=== PATIENT | male | born 1945 | race Caucasian/White ===

== ENCOUNTER 2019-11-07 14:24 | Inpatient (IN) ==
--- NOTE | 2019-11-07 14:41 | DR.AMS ---
HPI Time Seen Time Seen by Provider: 11/07/19 14:37 HPI Comment HPI Comment: 74 y/o discharged from [facility] yesterday after tx for UTI was also diagnosed with covid19 11/04; he was to come home on oxygen but refused and become very sob and confused overnight prompting today's visit; confused w/most of his answers so info obtained from daughter who says he started urinating on himself and went to ER on Friday; slight cough for the past few days with confusion, diarrhea and low oxygen; no fever, chills, abd pain, vomiting, cp, rash or swelling in feet legs. [facility] lab shows covid19+ 11/04 x 2 different tests PMH PMH Past Surgical History: Yes ROS Review of Systems Unable to Obtain Due To: Altered mental status PE Vitals Vital Signs: Temp Pulse Resp BP Pulse Ox 11/07/19 16:45 115 H 41 H 84 L 11/07/19 16:41 110 H 156/91 88 L 11/07/19 16:30 114 H 87 L 11/07/19 16:20 112 H 133/64 91 L 11/07/19 16:15 82 L 11/07/19 16:00 111 H 131/78 90 L 11/07/19 15:45 107 H 92 L 11/07/19 15:40 110 H 124/77 11/07/19 15:30 106 H 91 L 11/07/19 15:20 109 H 119/65 94 L 11/07/19 15:00 109 H 44 H 121/82 11/07/19 14:47 98.9 F 106 H 41 H 129/78 71 L 11/07/19 14:45 102 H 40 H 87 L 11/07/19 14:40 104 H 40 H 129/70 84 L 11/07/19 14:31 103 H 42 H 86 L 08/12/19 10:47 141/86 General Limitations: Altered Mental Status General Appearance: Other (pale, disoriented) Head Head Exam: Normal Inspection, Atraumatic and Normocephalic Eyes Eye exam: Normal Appearance, PERRL and EOMI Neck Neck Exam: Normal Inspection, Full ROM and Trachea Midline Chest Chest Inspection: Normal Inspection and Symmetric Chest Wall Rise Respiratory Respiratory Exam: Normal Lung Sounds Bilat Respiratory Exam: Bilateral: Clear to Auscultation Cardiovascular Cardiovascular Exam: Regular Rate and Tachycardia Abdominal Exam Abdominal Exam: Normal Inspection, Normal Bowel Sounds and Soft Extremities Extremities Exam: Normal Inspection and Full ROM Neurological Neurological Exam: Alert Skin Skin Exam: Warm and Dry COURSE Consultation Call Returned: 17:00 Consultation Comments: s/w Dr Mclean who accepts admission [facility] Labs Reviewed Laboratory Results Reviewed?: Yes Result Diagrams: 11/07/19 15:10 11/07/19 15:10 Laboratory: WBC 13.4 X10^3/uL (3.6-10.0) H 11/07/19 15:10 RBC 4.74 X10^6/uL (4.7-6.0) 11/07/19 15:10 Hgb 13.5 g/dL (13.5-18.0) 11/07/19 15:10 Hct 39.9 % (42.0-54.0) L 11/07/19 15:10 MCV 84.4 fL (80.0-100.0) 11/07/19 15:10 MCH 28.5 pg (27.0-34.0) 11/07/19 15:10 MCHC 33.8 g/dL (33.0-35.0) 11/07/19 15:10 RDW 16.8 % (11.6-16.5) H 11/07/19 15:10 Plt Count 122 X10^3/uL (150.0-450.0) L 11/07/19 15:10 Plt Count Comment Decreased (ADEQUATE) 11/07/19 15:10 MPV 7.9 fL (7.4-11.0) 11/07/19 15:10 Neut % (Auto) 90.0 % (42.0-75.0) H 11/07/19 15:10 Lymph % (Auto) 5.8 % (21.0-51.0) L 11/07/19 15:10 [place] % (Auto) 4.0 % (0.0-13.0) 11/07/19 15:10 Eos % (Auto) 0.0 % (0.9-2.9) L 11/07/19 15:10 Baso % (Auto) 0.2 % (0.2-1.0) 11/07/19 15:10 Neut # (Auto) 12.0 x10^3/uL (2.2-4.8) H 11/07/19 15:10 Lymph # (Auto) 0.8 X10^3/uL (1.3-2.9) L 11/07/19 15:10 [place] # (Auto) 0.5 x10^3/uL (0.3-0.8) 11/07/19 15:10 Eos # (Auto) 0.0 x10^3/uL (0.0-0.2) 11/07/19 15:10 Baso # (Auto) 0.0 X10^3/uL (0.0-0.1) 11/07/19 15:10 Absolute Nucleated RBC 0.1 /100WBC 11/07/19 15:10 Total Counted 100 11/07/19 15:10 Neutrophils % (Manual) 64 % (39-76) 11/07/19 15:10 Band Neutrophils % 12 % (0-10) H 11/07/19 15:10 Lymphocytes % (Manual) 12 % (13-43) L 11/07/19 15:10 Monocytes % (Manual) 6 % (4-9) 11/07/19 15:10 Metamyelocytes % 3 11/07/19 15:10 Myelocytes % 3 11/07/19 15:10 Plt Morphology Comment Normal (NORMAL) 11/07/19 15:10 RBC Morphology Normal (NORMAL) 11/07/19 15:10 Sample Site Right brachial 11/07/19 14:42 ABG pH 7.520 (7.35-7.45) H 11/07/19 14:42 ABG pCO2 30.0 mmHg (35.0-45.0) L 11/07/19 14:42 ABG pO2 44.0 mmHg (80.0-100.0) L* 11/07/19 14:42 ABG HCO3 24.5 mmol/L (22-26) 11/07/19 14:42 ABG O2 Saturation 85.0 % (90-100) L 11/07/19 14:42 ABG Base Excess 2.3 mmol/L (-2.0-2.0) H 11/07/19 14:42 [place] Test Na 11/07/19 14:42 A-a Gradient 68.0 mmHg 11/07/19 14:42 FiO2 21.0 11/07/19 14:42 Blood Gas Comments Lili well aw 11/07/19 14:42 Sodium 135 mmol/L (136-145) L 11/07/19 15:10 Corrected Sodium 137 mmol/L (136-145) 11/07/19 15:10 Potassium 4.3 mmol/L (3.5-5.1) 11/07/19 15:10 Chloride 98 mmol/L (98-107) 11/07/19 15:10 Carbon Dioxide 28.1 mmol/L (21-32) 11/07/19 15:10 BUN 19 mg/dL (7-18) H 11/07/19 15:10 Creatinine 1.40 mg/dL (0.70-1.30) H 11/07/19 15:10 Est GFR (MDRD) Af Amer > 60 (>60) 11/07/19 15:10 Est GFR (MDRD) Non-Af 52 (>60) L 11/07/19 15:10 Glucose 175 mg/dL (65-99) H 11/07/19 15:10 Lactic Acid 3.2 mmol/L (0.4-2.0) H 11/07/19 15:10 Calcium 8.3 mg/dL (8.5-10.1) L 11/07/19 15:10 Corrected Calcium 9.3 mg/dL (8.5-10.1) 11/07/19 15:10 Total Bilirubin 0.60 mg/dL (0.2-1.0) 11/07/19 15:10 AST 48 Units/L (15-37) H 11/07/19 15:10 ALT 37 Units/L (12-78) 11/07/19 15:10 Alkaline Phosphatase 92 Units/L (46-116) 11/07/19 15:10 C-Reactive Protein 7.40 mg/L (0-3.0) H 11/07/19 15:10 Total Protein 6.5 g/dL (6.4-8.2) 11/07/19 15:10 Albumin 2.8 g/dL (3.4-5.0) L 11/07/19 15:10 Globulin 3.7 g/dL (2.5-4.5) 11/07/19 15:10 Albumin/Globulin Ratio 0.8 Ratio (1.1-2.1) L 11/07/19 15:10 XRAY XRAY Interpreted by: Radiologist X-ray Results: cxr: Cardiomegaly without congestive heart failure Hypo inflation Interstitial lung changes right lung base Opioid Opioid Risk Tool Total: 0 Total Score Risk Category: Low Risk Copyright: [facility] predicting aberrant behaviors Diagnosis Discharge Problem: Hypoxia, COVID-19 virus detected RLL pneumonia Qualifiers: Pneumonia type: due to unspecified organism Qualified Code(s): J18.9 - Pn eumonia, unspecified organism Sepsis Qualifiers: Sepsis type: sepsis due to unspecified organism Sepsis acute organ dysfunction status: with acute organ dysfunction Severe sepsis acute organ dysfunction type: encephalopathy Severe sepsis shock status: without septic shock Qualified Code(s): A41.9 - Sepsis, unspecified organism Instructions Instructions: Community-Acquired Pneumonia, Adult, [id number] Forms: Excuse From Work Precautions for COVID19 Patient Portal Social Distancing
[2019-11-07 14:52] VITALS: BMI 33.1
[2019-11-07 14:52] LABS: ABG BASE EXCESS 2.3 mmol/L (-2.0-2.0); ABG HCO3 24.5 mmol/L (22-26)
--- NOTE | 2019-11-07 15:07 | RAD ---
HISTORYConfusion, COVID-19 positiveSTUDYChest AP portableCOMPARISONNoneFINDINGSThe heart is enlarged. No congestive heart failure is noted. The lungs are hypoinflated but free of acute alveolar and ground-glass infiltrates. Mild interstitial infiltrates are present in the right lung base. No pleural effusions are identified. Bony thorax is unremarkable.IMPRESSIONCardiomegaly without congestive heart failureHypo inflationInterstitial lung changes right lung baseElectronically signed by: WILFREDO MARTIN (Nov 07, 2019 15:06:05)
[2019-11-07 15:38] LABS: BASOPHILS % (AUTO) 0.2 % (0.2-1.0); HEMATOCRIT 39.9 % (42.0-54.0); HEMOGLOBIN 13.5 g/dL (13.5-18.0); LYMPHOCYTES # (AUTO) 0.8 X10^3/uL (1.3-2.9); LYMPHOCYTES % (AUTO) 5.8 % (21.0-51.0); MEAN CORPUSCULAR HEMOGLOBIN 28.5 pg (27.0-34.0); MEAN CORPUSCULAR HGB CONC 33.8 g/dL (33.0-35.0); MEAN CORPUSCULAR VOLUME 84.4 fL (80.0-100.0); MEAN PLATELET VOLUME 7.9 fL (7.4-11.0); MONOCYTES # (AUTO) 0.5 x10^3/uL (0.3-0.8); PLATELET COUNT 122 X10^3/uL (150.0-450.0); RED BLOOD COUNT 4.74 X10^6/uL (4.7-6.0); RED CELL DISTRIBUTION WIDTH 16.8 % (11.6-16.5); WHITE BLOOD COUNT 13.4 X10^3/uL (3.6-10.0)
[2019-11-07 15:41] LABS: ALANINE AMINOTRANSFERASE 37 Units/L (12-78); ALBUMIN 2.8 g/dL (3.4-5.0); ALKALINE PHOSPHATASE 92 Units/L (46-116); ASPARTATE AMINO TRANSFERASE 48 Units/L (15-37); BLOOD UREA NITROGEN 19 mg/dL (7-18); CALCIUM 8.3 mg/dL (8.5-10.1); CARBON DIOXIDE 28.1 mmol/L (21-32); CHLORIDE 98 mmol/L (98-107); COR CA(FOR HYPOALB) 9.3 mg/dL (8.5-10.1); COR NA(FOR HYPERGLY) 137 mmol/L (136-145); SODIUM 135 mmol/L (136-145); TOTAL PROTEIN 6.5 g/dL (6.4-8.2); eGFR NON BLACK RACES 52 (>60)
[2019-11-07 15:43] LABS: LACTIC ACID 3.2 mmol/L (0.4-2.0)
[2019-11-07 16:34] LABS: BAND NEUTROPHILS % 12 % (0-10); METAMYELOCYTES % 3; MYELOCYTES % 3; PLATELET MORPHOLOGY COMMENT NORMAL (NORMAL)
[2019-11-07] MEDS ORDERED: ROCEPHIN VIAL 1 GRAM 1 G in NS 100 ML IV + SPIKE MINIBAG* 100 ML IV ONE (16:59)
[2019-11-07] MEDS ORDERED: ZITHROMAX INJ 500 MG VIAL 500 MG in NS 250 ML IV 250 ML IV SCH (16:59)
[2019-11-07] MEDS ORDERED: ZOFRAN INJ 4 MG VIAL ONE (17:26)
[2019-11-07] MEDS ORDERED: NS 100 ML IV 100 ML IV ONE (17:31)
[2019-11-07] MEDS ORDERED: ROCEPHIN VIAL 1 GRAM ONE (17:31)
[2019-11-07] MEDS ORDERED: NS 1000 ML 1,000 ML ONE (17:31)
[2019-11-07] MEDS: NS 1000 ML 1,000 ML IV SCH (17:53)
[2019-11-07] MEDS: ROCEPHIN VIAL 1 GRAM 1 G in NS 100 ML IV + SPIKE MINIBAG* 100 ML IV SCH (17:54)
[2019-11-07] MEDS ORDERED: NARCAN INJ ONE (18:09)
[2019-11-07] MEDS ORDERED: TYLENOL SUPP 325 MG ONE (18:10)
[2019-11-07] MEDS ORDERED: TYLENOL SUPP 650 MG PR ONE (18:16)
[2019-11-07] MEDS: ZITHROMAX INJ 500 MG VIAL 500 MG in NS 250 ML IV 250 ML IV SCH (22:25)
[2019-11-07] MEDS: SNACK - Diabetic Appropriate PO SCH (22:25)
[2019-11-07] MEDS: ASCORBIC ACID INJ MULTI-DOSE VIAL 1,500 MG in NS 100 ML IV 100 ML IV SCH (22:26)
[2019-11-07] MEDS: LOVENOX INJ 30 MG SYR SC SCH (22:26)
[2019-11-07] MEDS: ZINC SULFATE PO SCH (22:27)
[2019-11-07] MEDS: MAALOX or MYLANTA PO PRN (23:10)
[2019-11-08 01:20] LABS: BILIRUBIN,URINE NEGATIVE (NEGATIVE); BLOOD/HEMOGLOBIN,URINE 1+ (NEGATIVE); GLUCOSE, URINE NEGATIVE (NEGATIVE); KETONES,URINE 1+ (NEGATIVE); LEUKOCYTE ESTERASE ,URINE NEGATIVE (NEGATIVE); NITRITES,URINE NEGATIVE (NEGATIVE); PROTEIN,URINE 2+ (NEGATIVE); UROBILINOGEN,URINE NORMAL (NORMAL)
[2019-11-08 01:37] LABS: APPEARANCE,URINE CLEAR (CLEAR); BACTERIA,URINE NEGATIVE /HPF (NEGATIVE); COLOR,URINE YELLOW (YELLOW); RBC,URINE 0-2 /HPF (0-3); SQUAMOUS EPITHELIAL CELL,UR RARE /HPF (NEGATIVE)
[2019-11-08] MEDS: ASCORBIC ACID INJ MULTI-DOSE VIAL 1,500 MG in NS 100 ML IV 100 ML IV SCH (03:26)
[2019-11-08] MEDS: HumuLIN R SUBCUT PRN ×2 (05:55→22:17)
[2019-11-08] MEDS: NS 1000 ML 1,000 ML IV SCH ×3 (05:55→22:19)
[2019-11-08 06:22] LABS: ALANINE AMINOTRANSFERASE 30 Units/L (12-78); ALBUMIN 2.5 g/dL (3.4-5.0); ALKALINE PHOSPHATASE 85 Units/L (46-116); ASPARTATE AMINO TRANSFERASE 47 Units/L (15-37); BLOOD UREA NITROGEN 19 mg/dL (7-18); CALCIUM 7.8 mg/dL (8.5-10.1); CARBON DIOXIDE 28.8 mmol/L (21-32); CHLORIDE 97 mmol/L (98-107); COR NA(FOR HYPERGLY) 139 mmol/L (136-145); CREATININE 1.35 mg/dL (0.70-1.30); SODIUM 135 mmol/L (136-145); eGFR NON BLACK RACES 55 (>60)
[2019-11-08 06:37] LABS: BASOPHILS % (AUTO) 0.3 % (0.2-1.0); EOSINOPHILS % (AUTO) 0.1 % (0.9-2.9); HEMATOCRIT 36.4 % (42.0-54.0); HEMOGLOBIN 12.4 g/dL (13.5-18.0); MEAN CORPUSCULAR HEMOGLOBIN 28.9 pg (27.0-34.0); MEAN CORPUSCULAR VOLUME 85.2 fL (80.0-100.0); MEAN PLATELET VOLUME 8.1 fL (7.4-11.0); MONOCYTES # (AUTO) 0.8 x10^3/uL (0.3-0.8); MONOCYTES % (AUTO) 6.5 % (0.0-13.0); NEUTROPHILS # (AUTO) 10.4 x10^3/uL (2.2-4.8); NEUTROPHILS % (AUTO) 85.1 % (42.0-75.0); PLATELET COUNT 112 X10^3/uL (150.0-450.0); RED BLOOD COUNT 4.28 X10^6/uL (4.7-6.0); RED CELL DISTRIBUTION WIDTH 16.9 % (11.6-16.5); WHITE BLOOD COUNT 12.2 X10^3/uL (3.6-10.0)
[2019-11-08 07:56] LABS: BAND NEUTROPHILS % 15 % (0-10)
[2019-11-08 07:57] LABS: PLATELET MORPHOLOGY COMMENT NORMAL (NORMAL)
[2019-11-08] MEDS ORDERED: DECADRON TAB PO SCH (09:00)
[2019-11-08] MEDS ORDERED: VITAMIN D (1.25MG) PO SCH (09:00)
[2019-11-08] MEDS: ROCEPHIN VIAL 1 GRAM 1 G in NS 100 ML IV + SPIKE MINIBAG* 100 ML IV SCH (10:14)
[2019-11-08] MEDS: ZINC SULFATE PO SCH ×2 (10:37→22:00)
[2019-11-08] MEDS: SYNTHROID 75 mcg TAB PO SCH (10:38)
[2019-11-08] MEDS: COREG TAB 3.125 MG PO SCH ×2 (10:40→22:00)
[2019-11-08] MEDS: LOVENOX INJ 30 MG SYR SC SCH ×2 (10:40→22:00)
[2019-11-08] MEDS: PLAQUENIL PO SCH ×2 (10:41→22:00)
[2019-11-08] MEDS: ZITHROMAX INJ 500 MG VIAL 500 MG in NS 250 ML IV 250 ML IV SCH (11:34)
[2019-11-08] MEDS: MAALOX or MYLANTA PO PRN (12:00)
[2019-11-08] MEDS: PROTONIX INJ 40 MG VIAL IVP SCH ×2 (12:00→22:00)
[2019-11-08] MEDS: ASCORBIC ACID INJ MULTI-DOSE VIAL 1,500 MG in NS 50 ML IV 50 ML IV SCH ×4 (13:45→22:00)
[2019-11-08] MEDS: LEVSIN/MAALOX/LIDOC VISC PO SCH ×3 (13:45→22:00)
[2019-11-08] MEDS: SNACK - Diabetic Appropriate PO SCH (20:00)
[2019-11-09] MEDS ORDERED: LASIX IVP ONE ×2 (00:59→01:11)
[2019-11-09] MEDS ORDERED: REMDESIVIR (INVESTIGATIONAL DRUG GS-5734) 200 MG in NS 250 ML IV 250 ML IV SCH (01:00)
[2019-11-09] MEDS ORDERED: REMDESIVIR (INVESTIGATIONAL DRUG GS-5734) IV ONE (01:12)
[2019-11-09] MEDS ORDERED: NS 250 ML IV 250 ML IV ONE (01:13)
[2019-11-09] MEDS ORDERED: BUTT CREAM (COMPOUND) ONE (01:44)
[2019-11-09] MEDS: ASCORBIC ACID INJ MULTI-DOSE VIAL 1,500 MG in NS 50 ML IV 50 ML IV SCH ×4 (04:00→21:24)
[2019-11-09] MEDS: SOLU-Medrol 125 MG VIAL IVP SCH ×3 (06:32→21:27)
[2019-11-09] MEDS: HumuLIN R SUBCUT PRN ×4 (06:37→21:28)
[2019-11-09 06:53] LABS: BASOPHILS % (AUTO) 0.2 % (0.2-1.0); HEMOGLOBIN 12.8 g/dL (13.5-18.0); LYMPHOCYTES # (AUTO) 0.7 X10^3/uL (1.3-2.9); LYMPHOCYTES % (AUTO) 6.2 % (21.0-51.0); MEAN CORPUSCULAR HEMOGLOBIN 29.1 pg (27.0-34.0); MEAN CORPUSCULAR HGB CONC 34.7 g/dL (33.0-35.0); MONOCYTES # (AUTO) 0.5 x10^3/uL (0.3-0.8); MONOCYTES % (AUTO) 4.4 % (0.0-13.0); NEUTROPHILS # (AUTO) 9.6 x10^3/uL (2.2-4.8); NEUTROPHILS % (AUTO) 89.2 % (42.0-75.0); PLATELET COUNT 107 X10^3/uL (150.0-450.0); RED BLOOD COUNT 4.41 X10^6/uL (4.7-6.0); WHITE BLOOD COUNT 10.8 X10^3/uL (3.6-10.0)
[2019-11-09 07:01] LABS: ALANINE AMINOTRANSFERASE 36 Units/L (12-78); ALBUMIN 2.5 g/dL (3.4-5.0); ALKALINE PHOSPHATASE 85 Units/L (46-116); ASPARTATE AMINO TRANSFERASE 58 Units/L (15-37); BLOOD UREA NITROGEN 15 mg/dL (7-18); CARBON DIOXIDE 29.7 mmol/L (21-32); CHLORIDE 97 mmol/L (98-107); COR CA(FOR HYPOALB) 9.2 mg/dL (8.5-10.1); COR NA(FOR HYPERGLY) 137 mmol/L (136-145); SODIUM 134 mmol/L (136-145); TOTAL PROTEIN 6.4 g/dL (6.4-8.2); eGFR NON BLACK RACES > 60 (>60)
--- NOTE | 2019-11-09 08:15 | DR.H&P ---
H&P - History & Physical for Day of: H&P Date: 11/07/19 - Chief Complaint Chief Complaint: COVID 19, DEHYDRATION, FEVER, CCC - History of Present Illness History of Present Illness: PT IS 74 WM ER ADMISSION WITH PMH OF COLON CA, UNDER THE CARE OF DR SANTIAGO, WHO PRESENTED WITH CO FEVER, CCC, UTI AND COVID 19. PT FAMILY STATES PT WAS RELEASED ONE DAY PRIOR TO ADMISSION FROM [facility] IN [place] WITH UTI, DEHYDRATION. PT REPORTS HE HAD TAKEN CHEMO LAST WEEK. PT HYPOXIC ON ADMISSION. [facility] OF [facility]UTE ILLNESS. - Past Medical History Past Medical History: Dyslipidemia, Hypertension, Hypothyroidism - Past Surgical History Surgical History: Joint Replacement - Family History Family Medical History: Diabetes Mellitus, Cancer, Hypertension - Social History Does patient currently use any type of tobacco product: No Have you used tobacco products in the last 12 months: No Type of Tobacco Use: None Does any household member use tobacco: No Alcohol Use: None Drug Use: None - Medications Home Medications: No Known Drug Allergies Allergy (Verified 11/07/19 15:10) CONTINUE taking the following medications atorvastatin 40 mg PO HS 11/07/19 [History] cefdinir 300 mg PO BID 11/07/19 [History] glipizide 5 mg PO DAILY 11/07/19 [History] hydrochlorothiazide 25 mg PO DAILY 11/07/19 [History] hydroxychloroquine 200 mg PO BID 11/07/19 [History] levofloxacin [Levaquin] 500 mg PO DAILY 11/07/19 [History] levothyroxine 75 mcg PO DAILY 11/07/19 [History] prednisone 5 mg PO DIRECTED 11/07/19 [History] - Review of Systems Constitutional: Fever, Chills, Weakness, Malaise Eyes: No Symptoms Reported ENT: No Symptoms Reported Respiratory: Cough, Shortness of Breath Gastrointestinal: Nausea Genitourinary: Frequency Musculoskeletal: Back Pain Skin: No Symptoms Reported Neurological: No Symptoms Reported - Physical Exam Vital Signs: Temperature 98.4 F Pulse Rate [Left Brachial] 74 Pulse Rate 114 Respiratory Rate 20 Blood Pressure [Left Arm] 131/66 Blood Pressure 138/76 O2 Sat by Pulse Oximetry 98 Oriented: Person Eyes: Normal Ear: Normal Nose: Normal Throat: Dry Respiratory: Diminished Throughout Cardiovascular: Normal : Normal Auscultation: Bowel Sounds: Decreased Tenderness: Normal Skin: Decreased Turgur Musculoskeletal: Normal Psychiatric: Normal Mood Description: Calm Speech Pattern: Clear, Appropriate - Assessment/Plan (1) COVID-19 virus detected Status: Acute Plan: PNEUMONIA WITH HYPOXIA. BLOOD AND URINE CULTURE ORDERED ON ADMISSION. SPUTUM CULTURE, IV HYDRATION STRICT I&O. SUPPLEMENTAL O2, TELEMETRY, RESP CONSULT. IV ABTX, REMDESIVIR, IV SOLU MEDROL. VERIFY HOME MEDICATION ,I SOLATION (2) Hypoxia Status: Acute (3) RLL pneumonia Qualifiers: Pneumonia type: due to unspecified organism Qualified Code(s): J18.9 - Pneumonia, unspecified organism Status: Acute (4) Sepsis Qualifiers: Sepsis type: sepsis due to unspecified organism Sepsis acute organ dysfunction status: with acute organ dysfunction Severe sepsis acute organ dysfunction type: encephalopathy Severe sepsis shock status: without septic shock Qualified Code(s): A41.9 - Sepsis, unspecified organism; R65.20 - Severe sepsis without septic shock; G93.40 - Encephalopathy, unspecified Status: Acute - Allergies Allergies/Adverse Reactions: Allergies Allergy/AdvReac Type Severity Reaction Status Date / Time No Known Drug Allergies Allergy Verified 11/07/19 15:10
[2019-11-09 08:21] LABS: BAND NEUTROPHILS % 9 % (0-10); PLATELET MORPHOLOGY COMMENT NORMAL (NORMAL)
[2019-11-09] MEDS: COREG TAB 3.125 MG PO SCH ×2 (08:51→21:24)
[2019-11-09] MEDS: ZINC SULFATE PO SCH ×2 (08:51→21:26)
[2019-11-09] MEDS: PROTONIX INJ 40 MG VIAL IVP SCH ×2 (08:51→21:26)
[2019-11-09] MEDS: VITAMIN D3 125 mcg (5,000 UNITS) PO SCH (08:52)
[2019-11-09] MEDS: SYNTHROID 75 mcg TAB PO SCH (08:52)
[2019-11-09] MEDS: LOVENOX INJ 30 MG SYR SC SCH ×2 (08:53→21:25)
[2019-11-09] MEDS: LEVSIN/MAALOX/LIDOC VISC PO SCH ×4 (08:54→21:25)
[2019-11-09] MEDS: BUTT CREAM (COMPOUND) TOP PRN (09:00)
[2019-11-09] MEDS: VITAMIN A PO SCH (09:09)
[2019-11-09] MEDS: ROCEPHIN VIAL 1 GRAM 1 G in NS 100 ML IV + SPIKE MINIBAG* 100 ML IV SCH (10:05)
--- NOTE | 2019-11-09 10:48 | RAD ---
HISTORYCOVID, PNEUMONIASTUDYCHEST, 1 [id number]/23/2020TECHNIQUEAP view of the chestFINDINGSLeft chest wall port with tip in good position. Cardiac silhouette is enlarged. Low lung volumes. Worsened bilateral scattered airspace disease worse in the right upper lobe. Suspect small pleural effusions. No pneumothorax.IMPRESSIONWorsened scattered airspace disease consistent with pneumonia.Electronically signed by: David Delong (Nov 09, 2019 10:47:54)
[2019-11-09] MEDS ORDERED: TUSSIONEX PENNKINETIC SUSP PO PRN (13:14)
[2019-11-09] MEDS: ZITHROMAX INJ 500 MG VIAL 500 MG in NS 250 ML IV 250 ML IV SCH (14:38)
[2019-11-09] MEDS: BENADRYL INJ 50 MG VIAL IVP SCH ×2 (14:45→21:27)
[2019-11-09] MEDS: ROBITUSSIN DM PO SCH ×3 (14:45→21:26)
[2019-11-09 17:07] LABS: ABG BASE EXCESS 4.5 mmol/L (-2.0-2.0); ABG HCO3 29.2 mmol/L (22-26)
[2019-11-09] MEDS: SNACK - Diabetic Appropriate PO SCH (21:24)
[2019-11-10] MEDS: ASCORBIC ACID INJ MULTI-DOSE VIAL 1,500 MG in NS 50 ML IV 50 ML IV SCH ×4 (02:55→21:44)
[2019-11-10] MEDS: BENADRYL INJ 50 MG VIAL IVP SCH ×3 (06:13→21:48)
[2019-11-10] MEDS: SOLU-Medrol 125 MG VIAL IVP SCH ×3 (06:14→21:48)
[2019-11-10] MEDS: HumuLIN R SUBCUT PRN ×4 (06:18→21:49)
[2019-11-10 06:45] LABS: BASOPHILS % (AUTO) 0.3 % (0.2-1.0); HEMATOCRIT 37.7 % (42.0-54.0); HEMOGLOBIN 13.1 g/dL (13.5-18.0); LYMPHOCYTES # (AUTO) 0.6 X10^3/uL (1.3-2.9); LYMPHOCYTES % (AUTO) 8.8 % (21.0-51.0); MEAN CORPUSCULAR HEMOGLOBIN 29.4 pg (27.0-34.0); MEAN CORPUSCULAR HGB CONC 34.8 g/dL (33.0-35.0); MEAN CORPUSCULAR VOLUME 84.6 fL (80.0-100.0); MEAN PLATELET VOLUME 7.7 fL (7.4-11.0); MONOCYTES # (AUTO) 0.3 x10^3/uL (0.3-0.8); MONOCYTES % (AUTO) 4.9 % (0.0-13.0); PLATELET COUNT 107 X10^3/uL (150.0-450.0); RED BLOOD COUNT 4.46 X10^6/uL (4.7-6.0)
[2019-11-10 07:00] LABS: ALANINE AMINOTRANSFERASE 33 Units/L (12-78); ALBUMIN 2.4 g/dL (3.4-5.0); ALKALINE PHOSPHATASE 82 Units/L (46-116); ASPARTATE AMINO TRANSFERASE 51 Units/L (15-37); BLOOD UREA NITROGEN 18 mg/dL (7-18); CALCIUM 8.3 mg/dL (8.5-10.1); CARBON DIOXIDE 30.7 mmol/L (21-32); CHLORIDE 98 mmol/L (98-107); COR CA(FOR HYPOALB) 9.6 mg/dL (8.5-10.1); COR NA(FOR HYPERGLY) 141 mmol/L (136-145); CREATININE 1.15 mg/dL (0.70-1.30); SODIUM 136 mmol/L (136-145); TOTAL PROTEIN 6.4 g/dL (6.4-8.2); eGFR NON BLACK RACES > 60 (>60)
[2019-11-10 07:42] LABS: BAND NEUTROPHILS % 4 % (0-10)
[2019-11-10 07:43] LABS: PLATELET MORPHOLOGY COMMENT NORMAL (NORMAL)
[2019-11-10] MEDS: LEVSIN/MAALOX/LIDOC VISC PO SCH ×4 (09:00→21:45)
[2019-11-10] MEDS: VITAMIN A PO SCH (09:00)
[2019-11-10] MEDS: ROCEPHIN VIAL 1 GRAM 1 G in NS 100 ML IV + SPIKE MINIBAG* 100 ML IV SCH (09:00)
[2019-11-10] MEDS: COREG TAB 3.125 MG PO SCH ×2 (09:00→21:45)
[2019-11-10] MEDS: ZINC SULFATE PO SCH ×2 (09:00→21:47)
[2019-11-10] MEDS: ZITHROMAX INJ 500 MG VIAL 500 MG in NS 250 ML IV 250 ML IV SCH (09:00)
[2019-11-10] MEDS: LOVENOX INJ 30 MG SYR SC SCH ×2 (09:00→21:45)
[2019-11-10] MEDS: VITAMIN D3 125 mcg (5,000 UNITS) PO SCH (09:00)
[2019-11-10] MEDS: ROBITUSSIN DM PO SCH ×4 (09:00→21:47)
[2019-11-10] MEDS: PROTONIX INJ 40 MG VIAL IVP SCH ×2 (09:00→21:47)
[2019-11-10] MEDS: SYNTHROID 75 mcg TAB PO SCH (09:00)
[2019-11-10 09:44] LABS: ABG BASE EXCESS 4.1 mmol/L (-2.0-2.0); ABG HCO3 28.5 mmol/L (22-26)
--- NOTE | 2019-11-10 12:29 | CT ---
HISTORYSOB- COVID +STUDYCTA CHESTCOMPARISONNone availableTECHNIQUEPulmonary angiogram was performed after the administration of contrast. 3D MIPS images were performed. CT scan was performed following ALARA (As low as Reasonably Achievable).Coronal and Sagittal reformatted images were performed.FINDINGSThe thyroid gland is normal. There is no significant axillary or mediastinal adenopathy. There are no pleural or pericardial effusions. There is a focal left adrenal nodule measuring approximately 2.7 centimeters. The spleen is nonenlarged. The gallbladder is contracted. The stomach is not distended.There are heavy coronary artery calcifications. There is no evidence of pulmonary embolism. No focal filling defects are seen. There are focal right hilar lymph nodes measuring 7 and 8 millimeters in short axis. There is also a lymph node posterior to the left atrium measuring approximately 2 by 1.1 centimeters.Lung windows there is severe ground-glass radiopacities involving the lower lobes right more than left as well as patchy in the upper lobes. With air bronchogram.Bone windows no evidence of acute fractures multilevel bridging anterior osteophytesIMPRESSIONNo evidence of pulmonary embolism. Severe ground-glass radiopacities in the bases with confluent areas and patchy in the upper lobes. No effusionRight hilar lymph nodes.Left adrenal noduleElectronically signed by: Kamryn Linda (Nov 10, 2019 12:29:07)
[2019-11-10] MEDS: ZOSYN VIAL 3.375 GRAMS 3.375 G in NS 100 ML IV + SPIKE MINIBAG* 100 ML IV SCH ×3 (18:30→23:20)
[2019-11-10] MEDS: SNACK - Diabetic Appropriate PO SCH (20:11)
[2019-11-10] MEDS: REMDESIVIR (INVESTIGATIONAL DRUG GS-5734) 100 MG in NS 250 ML IV 250 ML IV SCH (21:47)
[2019-11-10] MEDS: BUTT CREAM (COMPOUND) TOP PRN (21:49)
[2019-11-10] MEDS ORDERED: NS 1000 ML 1,000 ML ONE (22:27)
[2019-11-11] MEDS: ASCORBIC ACID INJ MULTI-DOSE VIAL 1,500 MG in NS 50 ML IV 50 ML IV SCH ×4 (02:51→22:09)
[2019-11-11] MEDS: SOLU-Medrol 125 MG VIAL IVP SCH ×3 (05:45→22:10)
[2019-11-11] MEDS: ZOSYN VIAL 3.375 GRAMS 3.375 G in NS 100 ML IV + SPIKE MINIBAG* 100 ML IV SCH ×3 (05:45→22:10)
[2019-11-11] MEDS: BENADRYL INJ 50 MG VIAL IVP SCH ×3 (05:45→22:10)
[2019-11-11 06:13] LABS: BASOPHILS % (AUTO) 0.1 % (0.2-1.0); HEMATOCRIT 33.5 % (42.0-54.0); HEMOGLOBIN 11.7 g/dL (13.5-18.0); LYMPHOCYTES # (AUTO) 0.4 X10^3/uL (1.3-2.9); LYMPHOCYTES % (AUTO) 5.6 % (21.0-51.0); MEAN CORPUSCULAR HEMOGLOBIN 29.3 pg (27.0-34.0); MEAN CORPUSCULAR HGB CONC 34.8 g/dL (33.0-35.0); MEAN CORPUSCULAR VOLUME 84.1 fL (80.0-100.0); MEAN PLATELET VOLUME 7.7 fL (7.4-11.0); MONOCYTES # (AUTO) 0.5 x10^3/uL (0.3-0.8); MONOCYTES % (AUTO) 6.9 % (0.0-13.0); NEUTROPHILS # (AUTO) 6.1 x10^3/uL (2.2-4.8); NEUTROPHILS % (AUTO) 87.4 % (42.0-75.0); PLATELET COUNT 111 X10^3/uL (150.0-450.0); RED BLOOD COUNT 3.98 X10^6/uL (4.7-6.0); RED CELL DISTRIBUTION WIDTH 16.9 % (11.6-16.5)
[2019-11-11] MEDS: HumuLIN R SUBCUT PRN ×3 (06:25→17:02)
[2019-11-11 06:33] LABS: ALANINE AMINOTRANSFERASE 28 Units/L (12-78); ALBUMIN 2.3 g/dL (3.4-5.0); ALKALINE PHOSPHATASE 80 Units/L (46-116); ASPARTATE AMINO TRANSFERASE 39 Units/L (15-37); BLOOD UREA NITROGEN 21 mg/dL (7-18); CALCIUM 8.3 mg/dL (8.5-10.1); CARBON DIOXIDE 31.1 mmol/L (21-32); CHLORIDE 103 mmol/L (98-107); COR CA(FOR HYPOALB) 9.7 mg/dL (8.5-10.1); COR NA(FOR HYPERGLY) 144 mmol/L (136-145); CREATININE 1.15 mg/dL (0.70-1.30); SODIUM 139 mmol/L (136-145); eGFR NON BLACK RACES > 60 (>60)
[2019-11-11 09:05] LABS: ABG BASE EXCESS 4.9 mmol/L (-2.0-2.0); ABG HCO3 29.2 mmol/L (22-26)
[2019-11-11] MEDS: VITAMIN A PO SCH (09:30)
[2019-11-11] MEDS: LOVENOX INJ 30 MG SYR SC SCH ×2 (09:30→22:12)
[2019-11-11] MEDS: ROBITUSSIN DM PO SCH ×4 (09:30→22:11)
[2019-11-11] MEDS: COREG TAB 3.125 MG PO SCH ×2 (09:30→22:11)
[2019-11-11] MEDS: PROTONIX INJ 40 MG VIAL IVP SCH ×2 (09:30→22:12)
[2019-11-11] MEDS: ZINC SULFATE PO SCH ×2 (09:30→22:11)
[2019-11-11] MEDS: LEVSIN/MAALOX/LIDOC VISC PO SCH ×4 (09:30→22:12)
[2019-11-11] MEDS: SYNTHROID 75 mcg TAB PO SCH (09:30)
[2019-11-11] MEDS: VITAMIN D3 125 mcg (5,000 UNITS) PO SCH (09:30)
[2019-11-11] MEDS: ZITHROMAX INJ 500 MG VIAL 500 MG in NS 250 ML IV 250 ML IV SCH (09:45)
[2019-11-11] MEDS: SNACK - Diabetic Appropriate PO SCH (20:45)
[2019-11-11] MEDS: BUTT CREAM (COMPOUND) TOP PRN (22:13)
[2019-11-11] MEDS: REMDESIVIR (INVESTIGATIONAL DRUG GS-5734) 100 MG in NS 250 ML IV 250 ML IV SCH (22:13)
[2019-11-12] MEDS: ASCORBIC ACID INJ MULTI-DOSE VIAL 1,500 MG in NS 50 ML IV 50 ML IV SCH ×4 (04:11→21:35)
[2019-11-12 05:21] LABS: BASOPHILS % (AUTO) 0.2 % (0.2-1.0); HEMATOCRIT 36.2 % (42.0-54.0); HEMOGLOBIN 12.2 g/dL (13.5-18.0); LYMPHOCYTES # (AUTO) 0.3 X10^3/uL (1.3-2.9); MEAN CORPUSCULAR HEMOGLOBIN 28.7 pg (27.0-34.0); MEAN CORPUSCULAR HGB CONC 33.7 g/dL (33.0-35.0); MEAN CORPUSCULAR VOLUME 85.4 fL (80.0-100.0); MEAN PLATELET VOLUME 8.1 fL (7.4-11.0); MONOCYTES # (AUTO) 0.5 x10^3/uL (0.3-0.8); MONOCYTES % (AUTO) 5.2 % (0.0-13.0); NEUTROPHILS # (AUTO) 7.9 x10^3/uL (2.2-4.8); NEUTROPHILS % (AUTO) 91.6 % (42.0-75.0); PLATELET COUNT 136 X10^3/uL (150.0-450.0); RED BLOOD COUNT 4.24 X10^6/uL (4.7-6.0); RED CELL DISTRIBUTION WIDTH 16.6 % (11.6-16.5); WHITE BLOOD COUNT 8.6 X10^3/uL (3.6-10.0)
[2019-11-12 05:35] LABS: ALANINE AMINOTRANSFERASE 27 Units/L (12-78); ALBUMIN 2.3 g/dL (3.4-5.0); ALKALINE PHOSPHATASE 85 Units/L (46-116); ASPARTATE AMINO TRANSFERASE 32 Units/L (15-37); BLOOD UREA NITROGEN 19 mg/dL (7-18); CALCIUM 8.2 mg/dL (8.5-10.1); CARBON DIOXIDE 30.4 mmol/L (21-32); CHLORIDE 104 mmol/L (98-107); COR CA(FOR HYPOALB) 9.6 mg/dL (8.5-10.1); COR NA(FOR HYPERGLY) 143 mmol/L (136-145); CREATININE 1.03 mg/dL (0.70-1.30); SODIUM 138 mmol/L (136-145); eGFR NON BLACK RACES > 60 (>60)
--- NOTE | 2019-11-12 05:47 | RAD ---
HISTORYPNEUMONIASTUDYCHEST, 1 [id number]/25/2020FINDINGSThe trachea is midline. The cardiac silhouette is enlarged. Bilateral airspace disease unchanged. No pleural effusion or pneumothorax. Left Port-A-Cath, unchanged.. The bony thorax is unremarkable.IMPRESSIONBilateral airspace disease unchanged from 11/09/2019Electronically signed by: Oh Pierre (Nov 12, 2019 05:47:03)
[2019-11-12 06:10] LABS: BAND NEUTROPHILS % 5 % (0-10); PLATELET MORPHOLOGY COMMENT NORMAL (NORMAL)
[2019-11-12] MEDS: SOLU-Medrol 125 MG VIAL IVP SCH ×3 (06:39→21:38)
[2019-11-12] MEDS: HumuLIN R SUBCUT PRN ×4 (06:39→21:39)
[2019-11-12] MEDS: BENADRYL INJ 50 MG VIAL IVP SCH ×3 (06:39→21:39)
[2019-11-12] MEDS: ZOSYN VIAL 3.375 GRAMS 3.375 G in NS 100 ML IV + SPIKE MINIBAG* 100 ML IV SCH ×3 (06:39→21:39)
[2019-11-12 06:53] LABS: ABG ALLEN TEST POS; ABG BASE EXCESS 3.9 mmol/L (-2.0-2.0); ABG HCO3 27.7 mmol/L (22-26)
[2019-11-12] MEDS: COREG TAB 3.125 MG PO SCH ×2 (09:44→21:35)
[2019-11-12] MEDS: LEVSIN/MAALOX/LIDOC VISC PO SCH ×4 (09:44→21:36)
[2019-11-12] MEDS: LOVENOX INJ 30 MG SYR SC SCH ×2 (09:45→21:36)
[2019-11-12] MEDS: PROTONIX INJ 40 MG VIAL IVP SCH ×2 (09:46→21:37)
[2019-11-12] MEDS: ROBITUSSIN DM PO SCH ×4 (09:51→21:38)
[2019-11-12] MEDS: SYNTHROID 75 mcg TAB PO SCH (09:52)
[2019-11-12] MEDS: VITAMIN A PO SCH (09:52)
[2019-11-12] MEDS: VITAMIN D3 125 mcg (5,000 UNITS) PO SCH (09:53)
[2019-11-12] MEDS: ZINC SULFATE PO SCH ×2 (09:53→21:38)
[2019-11-12] MEDS: ZITHROMAX INJ 500 MG VIAL 500 MG in NS 250 ML IV 250 ML IV SCH (09:54)
[2019-11-12] MEDS: ZESTRIL TAB 5 MG PO SCH (12:50)
[2019-11-12] MEDS: BUTT CREAM (COMPOUND) TOP PRN (20:08)
[2019-11-12] MEDS: REMDESIVIR (INVESTIGATIONAL DRUG GS-5734) 100 MG in NS 250 ML IV 250 ML IV SCH (21:37)
[2019-11-12] MEDS: SNACK - Diabetic Appropriate PO SCH (21:37)
[2019-11-13] MEDS: ASCORBIC ACID INJ MULTI-DOSE VIAL 1,500 MG in NS 50 ML IV 50 ML IV SCH ×4 (02:42→22:00)
[2019-11-13 05:36] LABS: BASOPHILS % (AUTO) 0.2 % (0.2-1.0); HEMATOCRIT 36.7 % (42.0-54.0); HEMOGLOBIN 12.4 g/dL (13.5-18.0); LYMPHOCYTES # (AUTO) 0.3 X10^3/uL (1.3-2.9); LYMPHOCYTES % (AUTO) 3.6 % (21.0-51.0); MEAN CORPUSCULAR HEMOGLOBIN 28.8 pg (27.0-34.0); MEAN CORPUSCULAR HGB CONC 33.7 g/dL (33.0-35.0); MEAN CORPUSCULAR VOLUME 85.5 fL (80.0-100.0); MEAN PLATELET VOLUME 8.2 fL (7.4-11.0); MONOCYTES # (AUTO) 0.4 x10^3/uL (0.3-0.8); MONOCYTES % (AUTO) 5.7 % (0.0-13.0); NEUTROPHILS # (AUTO) 7.1 x10^3/uL (2.2-4.8); NEUTROPHILS % (AUTO) 90.5 % (42.0-75.0); PLATELET COUNT 148 X10^3/uL (150.0-450.0); RED BLOOD COUNT 4.29 X10^6/uL (4.7-6.0); RED CELL DISTRIBUTION WIDTH 17.2 % (11.6-16.5); WHITE BLOOD COUNT 7.8 X10^3/uL (3.6-10.0)
[2019-11-13 05:46] LABS: ALANINE AMINOTRANSFERASE 29 Units/L (12-78); ALBUMIN 2.4 g/dL (3.4-5.0); ALKALINE PHOSPHATASE 94 Units/L (46-116); ASPARTATE AMINO TRANSFERASE 26 Units/L (15-37); BLOOD UREA NITROGEN 21 mg/dL (7-18); CALCIUM 8.4 mg/dL (8.5-10.1); CARBON DIOXIDE 31.1 mmol/L (21-32); CHLORIDE 104 mmol/L (98-107); COR CA(FOR HYPOALB) 9.7 mg/dL (8.5-10.1); COR NA(FOR HYPERGLY) 145 mmol/L (136-145); CREATININE 1.14 mg/dL (0.70-1.30); SODIUM 140 mmol/L (136-145); TOTAL PROTEIN 6.4 g/dL (6.4-8.2); eGFR NON BLACK RACES > 60 (>60)
[2019-11-13] MEDS: ZOSYN VIAL 3.375 GRAMS 3.375 G in NS 100 ML IV + SPIKE MINIBAG* 100 ML IV SCH ×3 (05:52→22:54)
[2019-11-13] MEDS: SOLU-Medrol 125 MG VIAL IVP SCH ×3 (05:52→22:54)
[2019-11-13] MEDS: HumuLIN R SUBCUT PRN ×4 (05:53→22:35)
[2019-11-13 06:02] LABS: BAND NEUTROPHILS % 2 % (0-10)
[2019-11-13 06:03] LABS: PLATELET MORPHOLOGY COMMENT NORMAL (NORMAL)
[2019-11-13] MEDS: PROTONIX INJ 40 MG VIAL IVP SCH ×2 (08:00→22:00)
[2019-11-13] MEDS: COREG TAB 3.125 MG PO SCH ×2 (08:50→22:00)
[2019-11-13] MEDS: LEVSIN/MAALOX/LIDOC VISC PO SCH ×4 (08:51→22:50)
[2019-11-13] MEDS: LOVENOX INJ 30 MG SYR SC SCH ×2 (08:51→22:51)
[2019-11-13] MEDS: SYNTHROID 75 mcg TAB PO SCH (08:52)
[2019-11-13] MEDS: ROBITUSSIN DM PO SCH ×4 (08:52→22:00)
[2019-11-13] MEDS: VITAMIN A PO SCH (08:53)
[2019-11-13] MEDS: VITAMIN D3 125 mcg (5,000 UNITS) PO SCH (08:54)
[2019-11-13] MEDS: ZESTRIL TAB 5 MG PO SCH (08:54)
[2019-11-13] MEDS: ZINC SULFATE PO SCH ×2 (08:54→22:00)
[2019-11-13] MEDS: ZITHROMAX INJ 500 MG VIAL 500 MG in NS 250 ML IV 250 ML IV SCH (08:55)
[2019-11-13 10:48] LABS: BILIRUBIN,URINE NEGATIVE (NEGATIVE); BLOOD/HEMOGLOBIN,URINE 4+ (NEGATIVE); GLUCOSE, URINE 4+ (NEGATIVE); KETONES,URINE NEGATIVE (NEGATIVE); LEUKOCYTE ESTERASE ,URINE 2+ (NEGATIVE); NITRITES,URINE NEGATIVE (NEGATIVE); PROTEIN,URINE 2+ (NEGATIVE); UROBILINOGEN,URINE NORMAL (NORMAL)
[2019-11-13 10:56] LABS: APPEARANCE,URINE CLEAR (CLEAR); BACTERIA,URINE NEGATIVE /HPF (NEGATIVE); COLOR,URINE YELLOW (YELLOW); RBC,URINE 0-2 /HPF (0-3); SQUAMOUS EPITHELIAL CELL,UR RARE /HPF (NEGATIVE)
--- NOTE | 2019-11-13 10:56 | RAD ---
HISTORYPneumonia sepsisSTUDYPortable AP [id number]/28/2020FINDINGSStable cardiomegaly. No change in position of left subclavian line/injection port. Bilateral interstitial infiltrates are present with slight interval improvement. No new consolidation or developing pleural fluid.IMPRESSIONPersistent cardiomegaly with improved bilateral interstitial infiltrates/edema since 1 day earlier. No new abnormality demonstrated.Electronically signed by: VERÓNICA EATON (Nov 13, 2019 10:55:10)
--- NOTE | 2019-11-13 14:40 | DR.UPDATE ---
H&P Update History and Physical Update: History and Physical reviewed and patient examined. Changes noted: NO Yes with the following:will place picc as ordered by Dr Mclean H&P Reviewed: Yes Patient was examined?: Yes Procedures (ALL) - Central Line Placement PCM.CLCO: verbal consent Time out performed: Yes Patient placed pm monitor/pulse ox: Yes MD prep: mask, gown, gloves, other Centrial line prep: chlorhexidine scrub, sterile drapes applied Local anesthsia used: lidocane 1% Ultrasound used for placement: Yes (right basilic id'd via u/s) Central line lumen ininserted: double (5.5fr arrow picc. 50cm total length with 5cm exposed.) Post procedure: good blood return, all ports aspirated, flushed,capped, sterile dressing applied Post procedure xray: tip oc catheter in good position, no pneumothorax seen Patient tolerated procedure: Yes Complications: none
--- NOTE | 2019-11-13 15:12 | RAD ---
HISTORYPICCSTUDYAP chest two [id number] a.m. 11/13/2019FINDINGSThere is no change in appearance of heart, lungs or mediastinum since earlier today. There is a new right-sided PICC extending to the level of the cavoatrial junction.IMPRESSIONPICC placement/position as described.Electronically signed by: VERÓNICA EATON (Nov 13, 2019 15:11:29)
[2019-11-13] MEDS: SNACK - Diabetic Appropriate PO SCH ×2 (20:50→22:48)
[2019-11-13] MEDS: REMDESIVIR (INVESTIGATIONAL DRUG GS-5734) 100 MG in NS 250 ML IV 250 ML IV SCH (22:00)
[2019-11-14] MEDS: ASCORBIC ACID INJ MULTI-DOSE VIAL 1,500 MG in NS 50 ML IV 50 ML IV SCH ×4 (03:56→21:45)
[2019-11-14] MEDS: ZOSYN VIAL 3.375 GRAMS 3.375 G in NS 100 ML IV + SPIKE MINIBAG* 100 ML IV SCH ×3 (05:54→22:13)
[2019-11-14] MEDS: SOLU-Medrol 125 MG VIAL IVP SCH ×3 (05:54→22:13)
[2019-11-14 06:16] LABS: BASOPHILS % (AUTO) 0.1 % (0.2-1.0); HEMATOCRIT 34.5 % (42.0-54.0); HEMOGLOBIN 11.8 g/dL (13.5-18.0); LYMPHOCYTES # (AUTO) 0.2 X10^3/uL (1.3-2.9); LYMPHOCYTES % (AUTO) 2.5 % (21.0-51.0); MEAN CORPUSCULAR HEMOGLOBIN 29.3 pg (27.0-34.0); MEAN CORPUSCULAR HGB CONC 34.3 g/dL (33.0-35.0); MEAN CORPUSCULAR VOLUME 85.5 fL (80.0-100.0); MEAN PLATELET VOLUME 8.3 fL (7.4-11.0); MONOCYTES # (AUTO) 0.5 x10^3/uL (0.3-0.8); MONOCYTES % (AUTO) 5.1 % (0.0-13.0); NEUTROPHILS # (AUTO) 8.9 x10^3/uL (2.2-4.8); NEUTROPHILS % (AUTO) 92.3 % (42.0-75.0); PLATELET COUNT 146 X10^3/uL (150.0-450.0); RED BLOOD COUNT 4.03 X10^6/uL (4.7-6.0); RED CELL DISTRIBUTION WIDTH 16.9 % (11.6-16.5); WHITE BLOOD COUNT 9.7 X10^3/uL (3.6-10.0)
[2019-11-14 06:28] LABS: ALANINE AMINOTRANSFERASE 24 Units/L (12-78); ALBUMIN 2.2 g/dL (3.4-5.0); ALKALINE PHOSPHATASE 88 Units/L (46-116); ASPARTATE AMINO TRANSFERASE 23 Units/L (15-37); BLOOD UREA NITROGEN 21 mg/dL (7-18); CALCIUM 8.2 mg/dL (8.5-10.1); CARBON DIOXIDE 27.6 mmol/L (21-32); CHLORIDE 106 mmol/L (98-107); COR CA(FOR HYPOALB) 9.6 mg/dL (8.5-10.1); COR NA(FOR HYPERGLY) 146 mmol/L (136-145); CREATININE 0.91 mg/dL (0.70-1.30); SODIUM 141 mmol/L (136-145); TOTAL PROTEIN 5.8 g/dL (6.4-8.2); eGFR NON BLACK RACES > 60 (>60)
[2019-11-14] MEDS: HumuLIN R SUBCUT PRN ×4 (06:34→22:00)
[2019-11-14 07:18] LABS: BAND NEUTROPHILS % 2 % (0-10); PLATELET MORPHOLOGY COMMENT NORMAL (NORMAL)
[2019-11-14] MEDS: LEVSIN/MAALOX/LIDOC VISC PO SCH ×2 (08:57→14:04)
[2019-11-14] MEDS: LOVENOX INJ 30 MG SYR SC SCH ×2 (08:57→22:09)
[2019-11-14] MEDS: COREG TAB 3.125 MG PO SCH ×2 (08:57→21:45)
[2019-11-14] MEDS: SYNTHROID 75 mcg TAB PO SCH (08:58)
[2019-11-14] MEDS: PROTONIX INJ 40 MG VIAL IVP SCH ×2 (08:58→21:45)
[2019-11-14] MEDS: ROBITUSSIN DM PO SCH ×2 (08:58→14:04)
[2019-11-14] MEDS: ZINC SULFATE PO SCH ×2 (08:59→21:45)
[2019-11-14] MEDS: VITAMIN A PO SCH (08:59)
[2019-11-14] MEDS: VITAMIN D3 125 mcg (5,000 UNITS) PO SCH (08:59)
[2019-11-14] MEDS: ZESTRIL TAB 5 MG PO SCH (08:59)
[2019-11-14] MEDS: LANTUS SC SCH (09:34)
[2019-11-14] MEDS: ZITHROMAX INJ 500 MG VIAL 500 MG in NS 250 ML IV 250 ML IV SCH (09:35)
[2019-11-14 11:28] LABS: ABG ALLEN TEST POS; ABG BASE EXCESS 3.3 mmol/L (-2.0-2.0); ABG HCO3 26.8 mmol/L (22-26)
[2019-11-14] MEDS ORDERED: LEVSIN/MAALOX/LIDOC VISC PO PRN (15:19)
[2019-11-14] MEDS ORDERED: ROBITUSSIN DM PO PRN (15:28)
[2019-11-14 15:43] LABS: CKMB % 0.7 % (<4); CREATINE KINASE 320 Units/L (39-308); CREATINE KINASE MB 2.1 ng/mL (0-4.0); TROPONIN I < 0.02 ng/mL (0-1.5)
[2019-11-14] MEDS ORDERED: RisperDAL TAB 1 MG PO SCH (21:00)
[2019-11-14] MEDS ORDERED: RisperDAL TAB 1 MG PO ONE (21:42)
[2019-11-14] MEDS: SNACK - Diabetic Appropriate PO SCH ×2 (22:13→22:14)
[2019-11-15] MEDS: ASCORBIC ACID INJ MULTI-DOSE VIAL 1,500 MG in NS 50 ML IV 50 ML IV SCH ×3 (03:15→16:02)
[2019-11-15] MEDS ORDERED: NS 100 ML IV + SPIKE MINIBAG* 100 ML IV ONE (04:50)
[2019-11-15 05:23] LABS: BASOPHILS % (AUTO) 0.1 % (0.2-1.0); HEMATOCRIT 37.3 % (42.0-54.0); HEMOGLOBIN 12.6 g/dL (13.5-18.0); LYMPHOCYTES # (AUTO) 0.2 X10^3/uL (1.3-2.9); LYMPHOCYTES % (AUTO) 1.8 % (21.0-51.0); MEAN CORPUSCULAR HEMOGLOBIN 29.1 pg (27.0-34.0); MEAN CORPUSCULAR HGB CONC 33.7 g/dL (33.0-35.0); MEAN CORPUSCULAR VOLUME 86.3 fL (80.0-100.0); MEAN PLATELET VOLUME 8.4 fL (7.4-11.0); MONOCYTES # (AUTO) 0.4 x10^3/uL (0.3-0.8); MONOCYTES % (AUTO) 4.5 % (0.0-13.0); NEUTROPHILS % (AUTO) 93.6 % (42.0-75.0); PLATELET COUNT 157 X10^3/uL (150.0-450.0); RED BLOOD COUNT 4.32 X10^6/uL (4.7-6.0); WHITE BLOOD COUNT 9.7 X10^3/uL (3.6-10.0)
[2019-11-15 05:27] LABS: ALANINE AMINOTRANSFERASE 29 Units/L (12-78); ALBUMIN 2.3 g/dL (3.4-5.0); ALKALINE PHOSPHATASE 92 Units/L (46-116); ASPARTATE AMINO TRANSFERASE 30 Units/L (15-37); BLOOD UREA NITROGEN 23 mg/dL (7-18); CALCIUM 8.3 mg/dL (8.5-10.1); CARBON DIOXIDE 27.8 mmol/L (21-32); CHLORIDE 106 mmol/L (98-107); COR CA(FOR HYPOALB) 9.7 mg/dL (8.5-10.1); COR NA(FOR HYPERGLY) 146 mmol/L (136-145); CREATININE 0.98 mg/dL (0.70-1.30); SODIUM 141 mmol/L (136-145); eGFR NON BLACK RACES > 60 (>60)
[2019-11-15] MEDS ORDERED: ZOSYN VIAL 3.375 GRAMS IV ONE (05:30)
[2019-11-15 05:49] LABS: PLATELET MORPHOLOGY COMMENT NORMAL (NORMAL)
[2019-11-15] MEDS: ZOSYN VIAL 3.375 GRAMS 3.375 G in NS 100 ML IV + SPIKE MINIBAG* 100 ML IV SCH ×2 (06:00→14:27)
[2019-11-15] MEDS: SOLU-Medrol 125 MG VIAL IVP SCH ×2 (06:24→14:26)
[2019-11-15] MEDS: HumuLIN R SUBCUT PRN ×3 (06:26→17:01)
--- NOTE | 2019-11-15 07:15 | RAD ---
HISTORYPneumonia, COVID positiveSTUDYCHEST, 1 [id number]/29/2020TECHNIQUEAP view of the chestFINDINGSLeft subclavian central line and right upper extremity PICC in good position. Worsened bilateral pulmonary infiltrates. Suspect a small left apical pneumothorax. Cannot exclude a small pleural effusion. Mild gas in the right neck.IMPRESSIONWorsened bilateral lung infiltrates consistent with pneumonia. Suspect a small left apical pneumothorax. Abnormal morphology of the mediastinum. Recommend CT.Electronically signed by: David Delong (Nov 15, 2019 07:14:37)
[2019-11-15 08:39] LABS: CKMB % 0.6 % (<4); CREATINE KINASE 226 Units/L (39-308); CREATINE KINASE MB 1.3 ng/mL (0-4.0); TROPONIN I < 0.02 ng/mL (0-1.5)
[2019-11-15] MEDS ORDERED: MORPHINE SULFATE INJ 2 MG INJ ONE (09:12)
[2019-11-15] MEDS: LANTUS SC SCH (09:19)
[2019-11-15] MEDS: COREG TAB 3.125 MG PO SCH (09:19)
[2019-11-15] MEDS: LOVENOX INJ 30 MG SYR SC SCH (09:20)
[2019-11-15] MEDS: SYNTHROID 75 mcg TAB PO SCH (09:21)
[2019-11-15] MEDS: PROTONIX INJ 40 MG VIAL IVP SCH (09:21)
[2019-11-15] MEDS: VITAMIN D3 125 mcg (5,000 UNITS) PO SCH (09:22)
[2019-11-15] MEDS: VITAMIN A PO SCH (09:22)
[2019-11-15] MEDS: ZESTRIL TAB 5 MG PO SCH (09:22)
[2019-11-15] MEDS: ZITHROMAX INJ 500 MG VIAL 500 MG in NS 250 ML IV 250 ML IV SCH (09:23)
[2019-11-15] MEDS: ZINC SULFATE PO SCH (09:23)
--- NOTE | 2019-11-15 13:15 | RAD ---
HISTORYSOBSTUDYCHEST, 1 VIEWCOMPARISONChest film November 15, 2019FINDINGSThe trachea is midline. The cardiac silhouette is unremarkable. There are bilateral pneumothoraces right slightly larger than left pleural separation on the right is about 2.35 cm maximal and the pleural separation on the left is about 1.83 cm. The trachea is midline there is no midline shift. Left subclavian central venous catheters in place right-sided PICC line are in is in place both in good position. Air is now seen in the right neck there is no midline shift.. In retrospect the pneumothoraces was present on the left and may have been present on the right but both are larger than what was seen on the 06/11 a.m. film. Bibasilar infiltrates are unchanged from earlier film the bony thorax is unremarkable.IMPRESSIONBilateral apical pneumothoraces without midline shift.Bibasilar infiltrates are unchanged from this morning's film.Right-sided PICC line and left subclavian central venous catheter are both in good position in the superior vena cavaElectronically signed by: AUDREY VILLALOBOS (Nov 15, 2019 13:14:29)
[2019-11-15 15:26] LABS: ABG BASE EXCESS 1.4 mmol/L (-2.0-2.0); ABG HCO3 24.7 mmol/L (22-26)
[2019-11-15 15:27] LABS: ABG ALLEN TEST POS
[2019-11-15 16:05] LABS: ABG BASE EXCESS 0.6 mmol/L (-2.0-2.0); ABG HCO3 24.3 mmol/L (22-26)
[2019-11-15] MEDS ORDERED: DIPRIVAN VIAL 20 ML ONE (19:43)
[2019-11-15] MEDS ORDERED: QUELICIN (OR ANECTINE) ONE (19:43)
[2019-11-15] MEDS ORDERED: NORCURON INJ 10 MG VIAL ONE (19:50)
[2019-11-15] MEDS ORDERED: VERSED ONE (20:05)
[2019-11-15] MEDS ORDERED: DIPRIVAN PREMIX 1 GRAM IV 1,000 MG/100 ML VIAL ONE (20:12)
--- NOTE | 2019-11-15 20:27 | DR.UPDATE ---
H&P Update History and Physical Update: History and Physical reviewed and patient examined. Changes noted: NO Yes with the following:agree with H&P. will intubate for worsening respiratory compromise. H&P Reviewed: Yes Patient was examined?: Yes Procedures (ALL) - Intubation Time out performed: Yes Sedative: other (propofol ) Mg given: 150mg paralytic: succinylchline (100mg. then vecuronium 10mg after return of spontaneous resp) Laryngoscope: fiber optic video scope ET tube size: 8 Tube secured depth: 22 Tube secured location: teeth Tube placement confirmation: visualized tube passing through cords, equal breath sounds bilaterally, no breath sounds over epigastrium, comfirmation by capnometer Patient tolerated procedure: Yes Intubation complications: none
[2019-11-15 20:52] VITALS: BP 145/93
[2019-11-15] MEDS ORDERED: DIPRIVAN PREMIX 1 GRAM IV 1,000 MG/100 ML VIAL IV PRN (20:59)
--- NOTE | 2019-11-15 21:12 | RAD ---
HISTORYvent tube placementSTUDYCHEST, 1 [id number]/31/2020 at 12:56 p.m.FINDINGSThe heart is mildly enlarged and unchanged. The pulmonary vessels are less prominent centrally. There is hazy airspace opacity throughout both lungs which is slightly decreased. There is a small left apical pneumothorax extending laterally which is much smaller in size and measures less than 5 percent. There is a small pneumothorax along the right apex extending laterally measuring approximately 5 percent which is also much less prominent. There is mild pneumomediastinum along superiorly with subcutaneous air along the lower neck which is increased. There is an ET tube in place the tip in the distal trachea, approximately 2.2 cm above the [place]. There is a right PICC line and left subclavian catheter in place which are unchanged. No effusion is seen.IMPRESSIONStatus post ET tube placement in the distal trachea as above.Slowly resolving bilateral apical pneumothoraces as above.Mild pneumomediastinum superiorly with subcutaneous air seen scattered in the lower neck which is more prominent.Stable cardiomegaly with resolving central pulmonary congestion.Hazy airspace opacity in both lungs which is less prominent.No change in the left subclavian catheter and right PICC line.Electronically signed by: RAY BOSTON (Nov 15, 2019 21:11:08)
[2019-11-16] MEDS: COREG TAB 3.125 MG PO SCH (07:17)
[2019-11-16] MEDS: VITAMIN D3 125 mcg (5,000 UNITS) PO SCH (07:18)
[2019-11-16] MEDS: ZINC SULFATE PO SCH (07:18)
[2019-11-16] MEDS: VITAMIN A PO SCH (07:18)
[2019-11-16] MEDS: SYNTHROID 75 mcg TAB PO SCH (07:18)
[2019-11-16] MEDS: ZESTRIL TAB 5 MG PO SCH (07:18)
--- NOTE | 2019-12-08 08:25 | DR.CARTERD ---
- Discharge Summary for: Discharge Summary for Date of:: 11/15/19 - Admission Date Date of Admission: 11/07/19 - Admission Diagnoses Admission Diagnosis: . 1. COVID-19 pneumonia with hypoxia. 2. Diabetes mellitus. 3. Hypertension. 4. History of gastroesophageal reflux disease. 5. History of colon cancer. - Discharge Date Discharge Date: 11/15/19 - Discharge Diagnoses Discharge Diagnosis: 1. COVID-19 pneumonia with hypoxia. 2. Diabetes mellitus. 3. Hypertension. 4. History of gastroesophageal reflux disease. 5. History of colon cancer. - Hospital Course Hospital Course: The patient is a 74-year-old white male who is COVID-19 pneumonia with hypoxia requiring BiPap therapy. The patient has continued with tachypnea as well as respiratory distress. He was decreased to 80% on the BiPap yesterday and continues with a PO2 in the 50s. His oxygen saturation is around 95-96%. The patient had been pretty agitated following the corticosteroid treatment as well as Benadryl. He was also experiencing some symptoms of benign prostatic hypertrophy today. We inserted the Mcneill catheter with approximately 250 mL of output at that time. We held the Benadryl and decreased corticosteroids due to the patients increasing anxiety. The patient seems to be more calm and cooperative this morning. His daughter had been staying with him. We moved him closer to the nursing station due to her leaving but this morning on 80% BiPap he was saturating around 96-97% and he was pretty calm. The patients white blood cell count was normal at 7.8 and hemoglobin was 12.4 grams. BUN was 21 and creatinine was 1.14. He is on Remedesivir, IV Zosyn, and Zithromax as well as aggressive respiratory toileting. He is on PPI therapy as well as blood sugar control. The patients blood sugar has been pretty elevated. I suspect that it is primarily due to corticosteroid treatment which was decreased. He is on sliding scale insulin and previously on oral medications which we have held pretty much to him being on BiPap. He has difficulty trying to take oral medications so we are going to start him on 10 units of a Basal insulin today and just monitor his blood sugars. The patients blood pressure was slightly elevated this morning around 150 systolically. We have started him on Lisinopril, 5 mg daily. The patients heart rate has been in the 57-60 this morning with sinus bradycardia and sinus rhythm. He is on a Beta Peewee. Patient was life flighted to [facility] for further care. - Discharge Medications Discharge Medications: Home Medication List atorvastatin 40 mg PO HS 11/07/19 [History] cefdinir 300 mg PO BID 11/07/19 [History] glipizide 5 mg PO DAILY 11/07/19 [History] hydrochlorothiazide 25 mg PO DAILY 11/07/19 [History] hydroxychloroquine 200 mg PO BID 11/07/19 [History] levofloxacin [Levaquin] 500 mg PO DAILY 11/07/19 [History] levothyroxine 75 mcg PO DAILY 11/07/19 [History] prednisone 5 mg PO DIRECTED 11/07/19 [History] Prescriptions: - Discharge Disposition Discharge Disposition: LIFEFLIGHT TO [facility] - Discharge Diagnoses Health Concerns: Post Hospitalization: new medications and changes needed to prevent readmission or further decline. Pt educated and given instructions on all concerns. Plan of Treatment: Continue with present treatment and follow up plan. Pt is to keep follow up appointment as instructed and take medications as ordered.
== END 2019-11-15 21:00 | disposition short-term general hospital (02) | DRG 871 ==
LOC: ER 14:25 → MED/SURG 17:07 → ICU 11-13 11:20
PROVIDERS: ADMIT Internal Medicine; ATTEND Internal Medicine
DX: N39.0 Urinary tract infection, site not specified; R53.1 Weakness; E86.0 Dehydration; N40.1 Benign prostatic hyperplasia with lower urinary tract symptoms; Z92.21 Personal history of antineoplastic chemotherapy; R09.02 Hypoxemia; I10 Essential (primary) hypertension; K21.9 Gastro-esophageal reflux disease without esophagitis; E03.8 Other specified hypothyroidism; C18.7 Malignant neoplasm of sigmoid colon; J93.9 Pneumothorax, unspecified; R26.89 Other abnormalities of gait and mobility; A41.9 Sepsis, unspecified organism; U07.1 COVID-19; E78.2 Mixed hyperlipidemia; J12.89 Other viral pneumonia